=== PATIENT | female | born 1995 ===

== ENCOUNTER 2023-06-05 08:00 | Inpatient (IN) | payer SELFPAY ==
[2023-06-12] MEDS: Lactated Ringers 1,000 ML IV SCH ×2 (05:30→15:23)
[2023-06-12] MEDS ORDERED: ceFAZolin 2 GM in Sodium Chloride 0.9% 50 ML IV ONE (05:34)
[2023-06-12] MEDS ORDERED: Sodium Chloride 0.9% 20 ML SDV IV PRN (05:34)
[2023-06-12] MEDS ORDERED: Sodium Chloride 0.9% 2.5 ML Syringe FLUSH PRN (05:34)
[2023-06-12] MEDS ORDERED: Citric Acid/Sodium Citrate Solution 30 ML Cup PO ONE (05:34)
[2023-06-12] MEDS ORDERED: Oxytocin/0.9 % Sodium Chloride 30 UNIT/500 ML BAG IV SCH ×2 (05:45→15:00)
[2023-06-12 06:23] LABS: HEMATOCRIT 25.7 % (37.0-47.0); HEMOGLOBIN 7.9 g/dL (12.0-16.0); MEAN CORPUSCULAR HEMOGLOBIN 20.5 pg (28.0-32.0); MEAN CORPUSCULAR HGB CONC 30.7 g/dL (32.0-36.0); MEAN CORPUSCULAR VOLUME 66.6 fL (83.0-99.0); MEAN PLATELET VOLUME 11.1 fL (9.4-12.3); NRBC ABSOLUTE 0.02 K/uL (0.00-0.02); NRBC PERCENT 0.2 /100WBC (0.0-0.2); PLATELET COUNT,PLT 257 K/uL (150-400); RED BLOOD CELL COUNT 3.86 M/uL (4.10-5.30); WHITE BLOOD CELL COUNT,WBC 9.68 K/uL (3.9-11.3)
[2023-06-12] MEDS ORDERED: fentaNYL 50 MCG/ML SDV IVPUSH PRN (06:48)
[2023-06-12] MEDS ORDERED: Acetaminophen/oxyCODONE 325-5 MG Tab PO PRN (06:48)
[2023-06-12] MEDS ORDERED: Ondansetron 4 MG/2 ML SDV IVPUSH PRN ×3 (06:48→14:48)
[2023-06-12] MEDS ORDERED: ePHEDrine 50 MG/ML SDV IVPUSH PRN (06:48)
[2023-06-12] MEDS ORDERED: Morphine 2 MG/ML SYRINGE IVPUSH PRN ×2 (06:48→22:38)
[2023-06-12] MEDS ORDERED: fentaNYL 100 MCG/2 ML SDV IVPUSH PRN (06:48)
[2023-06-12] MEDS ORDERED: HYDROmorphone 1 MG/ML Syringe IVPUSH PRN (06:48)
[2023-06-12] MEDS ORDERED: diphenhydrAMINE 50 MG/ML SDV IVPUSH PRN ×2 (06:48→14:48)
[2023-06-12] MEDS ORDERED: Naloxone 0.4 MG/ML SDV IVPUSH PRN (06:48)
[2023-06-12] MEDS ORDERED: droPERidol 5 MG/2 ML SDV IVPUSH PRN (06:48)
[2023-06-12] MEDS ORDERED: Metoclopramide 10 MG/2 ML SDV IVPUSH PRN (06:48)
[2023-06-12] MEDS ORDERED: Albuterol 0.083% 2.5 MG/3 ML Neb Soln NEB PRN (06:48)
[2023-06-12] MEDS ORDERED: Ropivacaine 0.5% 5 MG/ML 30 ML SDV ONE (06:55)
[2023-06-12] MEDS ORDERED: ceFAZolin 1 GM Vial ONE (06:55)
[2023-06-12] MEDS ORDERED: Ketorolac 30 MG/ML SDV ONE (06:55)
[2023-06-12] MEDS ORDERED: Phenylephrine 1% 10 MG/ML SDV ONE (06:55)
[2023-06-12] MEDS ORDERED: Oxytocin 10 Units/1 ML SDV ONE (06:55)
[2023-06-12] MEDS ORDERED: dexmedeTOMIDine HCl 200 MCG/2 ML SDV ONE (06:55)
[2023-06-12] MEDS ORDERED: Water For Injection, Sterile 20 ML ONE (06:55)
[2023-06-12] MEDS ORDERED: Lidocaine 2% 5 ML SDV ONE (06:55)
[2023-06-12] MEDS ORDERED: Dexamethasone 4 MG/ML 5 ML MDV ONE (06:55)
[2023-06-12] MEDS ORDERED: Ondansetron 4 MG/2 ML SDV ONE ×2 (06:55→09:14)
[2023-06-12] MEDS ORDERED: fentaNYL 100 MCG/2 ML SDV ONE (06:58)
[2023-06-12] MEDS ORDERED: Morphine PF 10 MG/10 ML SDV ONE (06:58)
[2023-06-12] MEDS ORDERED: Tranexamic Acid 1,000 MG/10 ML Vial ONE ×2 (07:39→09:09)
[2023-06-12] MEDS ORDERED: Calcium Chloride 10% 1 GM/10 ML Syringe ONE (07:40)
[2023-06-12] MEDS ORDERED: Metoclopramide 10 MG/2 ML SDV ONE (09:13)
[2023-06-12] MEDS: Acetaminophen 1,000 MG in Premix Bag 1 BAG IV SCH ×2 (11:14→19:14)
[2023-06-12] MEDS ORDERED: Lanolin 100% Cream 7 GM Tube TOP PRN (14:48)
[2023-06-12] MEDS ORDERED: Oxytocin 10 Units/1 ML SDV IM PRN (14:48)
[2023-06-12] MEDS ORDERED: Methylergonovine 0.2 MG/1 ML Amp IM PRN (14:48)
[2023-06-12] MEDS ORDERED: Bisacodyl 10 MG Supp RECTAL PRN (14:48)
[2023-06-12] MEDS ORDERED: Misoprostol 200 MCG Tab RECTAL PRN (14:48)
[2023-06-12] MEDS ORDERED: Lactated Ringers 1,000 ML IV SCH (15:00)
[2023-06-12] MEDS: Ketorolac 30 MG/ML SDV IVPUSH SCH ×2 (15:23→21:17)
[2023-06-12] MEDS: Docusate Sodium 100 MG Cap PO SCH (21:16)
[2023-06-12] MEDS: Simethicone 80 MG Tab.Chew PO SCH (22:59)
[2023-06-13] MEDS: Acetaminophen 1,000 MG in Premix Bag 1 BAG IV SCH ×2 (00:01→05:55)
[2023-06-13] MEDS: Ketorolac 30 MG/ML SDV IVPUSH SCH ×2 (03:02→09:34)
[2023-06-13 06:16] LABS: HEMATOCRIT 23.9 % (37.0-47.0); HEMOGLOBIN 7.5 g/dL (12.0-16.0)
[2023-06-13] MEDS: Docusate Sodium 100 MG Cap PO SCH ×2 (09:35→20:29)
[2023-06-13] MEDS: Simethicone 80 MG Tab.Chew PO SCH ×2 (09:36→20:29)
[2023-06-13] MEDS: Sodium Chloride 0.9% 10 ML Syringe FLUSH PRN ×2 (09:37→09:40)
[2023-06-13] MEDS: Acetaminophen/oxyCODONE 325-5 MG Tab PO PRN ×3 (12:07→20:30)
[2023-06-13] MEDS: Ibuprofen 800 MG Tab PO PRN (20:30)
[2023-06-14] MEDS: Acetaminophen/oxyCODONE 325-5 MG Tab PO PRN ×4 (00:33→20:18)
[2023-06-14] MEDS: Ibuprofen 800 MG Tab PO PRN ×2 (04:32→13:54)
[2023-06-14] MEDS: Simethicone 80 MG Tab.Chew PO SCH ×2 (09:03→20:17)
[2023-06-14] MEDS: Docusate Sodium 100 MG Cap PO SCH ×2 (09:03→20:17)
[2023-06-14] MEDS ORDERED: Acetaminophen/HYDROcodone 325-5 MG Tab PO PRN (15:09)
== END 2023-06-14 22:07 | disposition home or self-care (01) | DRG 788 ==
LOC: MW.OB 06-12 05:10
PROVIDERS: ADMIT Obstetrics & Gynecology Obstetrics; ATTEND Obstetrics & Gynecology Obstetrics
PROC: 10D00Z1 Extraction of Products of Conception, Low, Open Approach (ICD-10-PCS; principal; 2023-06-12 08:00)
DX: O48.0 Post-term pregnancy (principal); O34.211 Maternal care for low transverse scar from previous cesarean delivery; O99.02 Anemia complicating childbirth; D64.9 Anemia, unspecified; O99.214 Obesity complicating childbirth; Z37.0 Single live birth; Z3A.40 40 weeks gestation of pregnancy
CPT/HCPCS: 01961; 36415; 36430; 59025; 64488; 85014; 85018; 85027; 86592; 86850; 86900; 86901; 86920; A9270-GY; J0131; J0690; J1100; J1885; J2270; J2274; J2371; J2405; J2590; J2765; J2795; J3010; J3490; J7120; P9016